=== PATIENT | female | born 2000 | race Hispanic/Latino ===

== ENCOUNTER 2020-11-28 22:05 | Emergency (ER) | payer OTHER ==
[~2020-11-28] VITALS: Ht 165.1 cm; Wt 104.3 kg
[2020-11-28] MEDS ORDERED: FAMOTIDINE 20MG TAB ONE (22:26)
[2020-11-28] MEDS ORDERED: DEXAMETHASONE SOD PHOSPHATE 4 MG/ML 1ML VIAL ONE (22:26)
[2020-11-28] MEDS ORDERED: DIPHENHYDRAMINE HCL 25 MG CAPSULE ONE (22:27)
[2020-11-28] MEDS ORDERED: FAMOTIDINE 20MG TAB PO ONE (22:30)
[2020-11-28] MEDS ORDERED: DIPHENHYDRAMINE HCL 25 MG CAPSULE PO ONE (22:30)
[2020-11-28] MEDS ORDERED: DEXAMETHASONE SOD PHOSPHATE 4 MG/ML 1ML VIAL IM SCH (22:30)
[2020-11-28 22:38] VITALS: BP 107/66
[2020-11-28] MEDS ORDERED: DIPH25 PO (23:01)
[2020-11-28] MEDS ORDERED: FAMO20TA8 PO (23:01)
== END 2020-11-28 23:10 | disposition home or self-care (01) ==
LOC: EDH 22:05
DX: T78.49XA Other allergy, initial encounter (principal); Z79.52 Long term (current) use of systemic steroids; X58.XXXA Exposure to other specified factors, initial encounter
CPT/HCPCS: 96372; 99283; J1100; Q0163

== ENCOUNTER 2021-02-02 15:51 | Emergency (ER) | payer SELFPAY ==
[~2021-02-02] VITALS: Ht 167.6 cm; Wt 99.8 kg
[~2021-02-02 15:51] MED LIST: DIPH25 PO; FAMO20TA8 PO
[2021-02-02 17:03] LABS: BASOPHILS % (AUTO) 0.3 % (0.0-5.0); EOSINOPHILS % (AUTO) 2.8 % (0.0-8.0); HEMATOCRIT 37.7 % (36-48); LYMPHOCYTES % (AUTO) 29.3 % (21.0-51.0); MEAN CORPUSCULAR HEMOGLOBIN 28.5 pg (27.0-33.0); MEAN CORPUSCULAR HGB CONC 33.7 g/dL (32.0-36.0); MEAN CORPUSCULAR VOLUME 84.5 fL (80-100); MONOCYTES % (AUTO) 7.7 % (3.0-13.0); NEUTROPHILS % (AUTO) 59.5 % (40.0-77.0); PLATELET COUNT (AUTO) 446 K/uL (130-400); RED BLOOD CELL COUNT(AUTO) 4.46 MIL/uL (4.00-5.50); RED CELL DISTRIBUTION WIDTH 13.2 % (11.0-15.5); WHITE BLOOD COUNT (AUTO) 7.8 K/uL (4.8-10.8)
[2021-02-02 17:06] LABS: APPEARANCE,URINE Clear (CLEAR); BILIRUBIN,URINE Negative (NEGATIVE); COLOR,URINE Dark Yellow (YELLOW); GLUCOSE, URINE (UA) Negative (NEGATIVE); KETONES,URINE 15 mg/dL (NEGATIVE); LEUKOCYTE ESTERASE ,URINE Negative (NEGATIVE); NITRATE,URINE Negative (NEGATIVE); OCCULT BLOOD,URINE Negative (NEGATIVE); PROTEIN,URINE Negative (NEGATIVE)
[2021-02-02 17:12] LABS: AMPHET/METH SCREEN,URINE NEGATIVE (NEGATIVE); BARBITURATE SCREEN, URINE NEGATIVE (NEGATIVE); BENZODIAZEPINES SCREEN,URINE NEGATIVE (NEGATIVE); CANNABINOID SCREEN,URINE NEGATIVE (NEGATIVE); COCAINE SCREEN,URINE NEGATIVE (NEGATIVE); OPIATE SCREEN,URINE NEGATIVE (NEGATIVE); PHENCYCLIDINE SCREEN,URINE NEGATIVE (NEGATIVE)
[2021-02-02 17:24] LABS: CREATININE 0.8 mg/dL (0.5-1.5); POTASSIUM 3.3 mmol/L (3.5-5.1)
[2021-02-02 17:28] LABS: HCG,QUAL RESULT NEGATIVE (NEGATIVE)
[2021-02-02 17:37] LABS: ALBUMIN 3.7 g/dL (3.5-5.0); BILIRUBIN,TOTAL 0.3 mg/dL (0.2-1.0); THYROID STIMULATING HORMONE 0.97 uIU/mL (0.36-3.74); TOTAL PROTEIN, SERUM 8.1 g/dL (6.0-8.3)
[2021-02-02 18:12] VITALS: BP 121/72
[2021-02-02] MEDS ORDERED: FAMO20TA8 PO (18:22)
== END 2021-02-02 19:14 | disposition home or self-care (01) ==
LOC: EDH 15:51
DX: R07.89 Other chest pain (principal); R00.2 Palpitations; F41.9 Anxiety disorder, unspecified; Z79.899 Other long term (current) drug therapy
CPT/HCPCS: 36415; 71045; 80053; 80305; 81003; 81025; 82550; 83735; 84443; 84484; 85025; 85378; 93005